=== PATIENT | female | born 1970 | race Caucasian/White ===

== ENCOUNTER → 2017-04-03 | Outpatient (CLI) | payer SELFPAY ==
[~2017-04-03] MED LIST: IMITREX100 MG PO; KEFLEX 500MG.500 MG PO
--- NOTE | 2017-04-03 12:05 | RADIOLOGY REPORT PS360 ---
LOWER LEG-LT HISTORY: LEFT KNEE INJURY,LT LEG PAIN ORDERING PHYSICIAN: Jyoti LIMON PATIENT AGE: 46 years COMPARISON: None FINDINGS: No fracture or dislocation. No lytic or blastic change. There is normal mineralization. The joint spaces are well-preserved. No significant degenerative/arthritic changes. No erosive changes evident. IMPRESSION: Negative, no acute finding
--- NOTE | 2017-04-03 12:11 | RADIOLOGY REPORT PS360 ---
KNEE-3 VIEWS-LT HISTORY: Knee pain following injury LEFT KNEE INJURY,LT LEG PAIN ORDERING PHYSICIAN: Jyoti LIMON PATIENT AGE: 46 years COMPARISON: None FINDINGS: No fracture or dislocation. No lytic or blastic change. Normal mineralization. No significant arthritic changes evident. There is a small well-circumscribed calcific density along the proximal aspect of the tibia posteriorly consistent with a small loose body. There are minimal osteoarthritic changes of the patellofemoral joint IMPRESSION: 1. No acute finding. 2. Small loose body posterior knee joint
== END ==
LOC: RAD 11:15
DX: M25.562 Pain in left knee (principal); M79.605 Pain in left leg; S89.92XA Unspecified injury of left lower leg, initial encounter